=== PATIENT | female | born 1990 | race Hispanic/Latino ===

== ENCOUNTER 2024-11-09 00:03 | Emergency (ER) | payer SELFPAY ==
[2024-11-09] MEDS ORDERED: Ibuprofen 200 MG TAB ONE (01:28)
[2024-11-09] MEDS ORDERED: Acetaminophen 325 MG TAB ONE (01:29)
[2024-11-09] MEDS ORDERED: predniSONE 20 MG TAB ONE (01:29)
== END 2024-11-09 02:53 | disposition home or self-care (01) ==
LOC: ERS 00:03
DX: J10.1 Influenza due to other identified influenza virus with other respiratory manifestations (principal)
CPT/HCPCS: 87428; 99283; J7512